=== PATIENT | male | born 1975 | race Caucasian/White ===

== ENCOUNTER 2024-04-05 10:29 | Emergency (ER) | payer OTHER ==
[2024-04-05 10:47] VITALS: PULSE 94; TEMP 98.4; O2SAT 95
[2024-04-05] MEDS ORDERED: DECADRON 10MG INJ. ONE (11:32)
[2024-04-05] MEDS ORDERED: TORAdol 30 mg Injection ONE (11:32)
--- NOTE | 2024-04-05 11:33 | ERPHSYRPT ---
- History of Present Illness Time Seen by Provider: 04/05/24 10:50 Source: patient Exam Limitations: no limitations Patient Subjective Stated Complaint: right lower back pain for approx 1 weeks Triage Nursing Assessment: Pt brought to the ER by his , hypertensive, rates pain as 8-9/10, pulses normal, skin n /w/d, pain in right lower back that radiats to his right buttock, pt had an injured right ham string approx 6 months ago and did do a lot of physical therapy and unsure if it is related or not, no difficulty breathing, denies chest pain, doesn't appear to be in any distress Physician History: Patient is a 49-year-old male history of hypertension and low back pain presents to our ED for acute on chronic low back pain. Pain started approximately 5 days ago. Pain radiates down into his right buttock. Patient reports that he has difficulty getting out of bed in the morning. states that it is limiting his functional capacity. Patient had a torn hamstring diagnosed approximately 6 months ago. Patient went through physical therapy for the hamstring tear. Family is wondering if physical therapy exacerbated his back pain. No interval trauma. No falls no injuries. No extremity numbness tingling or weakness. No change in bowel bladder function. No saddle anesthesia. No recent back procedure. No associate abdominal or chest pain. Patient's last imaging study was over a year ago. requesting a CT scan. They voiced no other complaints or concerns at this time. Portions of this note were created with voice recognition technology. There may be grammatical, spelling, punctuation or sound alike errors Timing/Duration: day(s) (2 days) Method of Injury: unknown Quality: radiating Back Pain Location: lumbar spine Back Pain Radiation: buttocks (Pain radiates to right buttock) Severity of Pain-Max: moderate Severity of Pain-Current: moderate Modifying Factors: Improves With: movement Associated Symptoms: denies symptoms Previous symptoms: same symptoms as today Allergies/Adverse Reactions: No Known Drug Allergies Allergy (Verified 04/05/24 10:47) Hx Influenza Vaccination/Date Given: Yes Hx Pneumococcal Vaccination/Date Given: No Travel Risk - International Travel Have you traveled outside of the country in past 3 weeks: No - Emerging Infectious Disease Are you exhibiting symptoms associated with any current EIDs: No - Review of Systems Constitutional: No Symptoms, No Fever, No Chills Eyes: No Symptoms Ears, Nose, & Throat: No Symptoms Respiratory: No Symptoms, No Cough, No Dyspnea Cardiac: No Symptoms, No Chest Pain, No Edema, No Syncope Abdominal/Gastrointestinal: No Symptoms, No Abdominal Pain, No Nausea, No Vomiting, No Diarrhea Genitourinary Symptoms: No Symptoms, No Dysuria Musculoskeletal: No Symptoms, No Back Pain, No Neck Pain Skin: No Symptoms, No Rash Neurological: No Symptoms, No Dizziness, No Focal Weakness, No Sensory Changes Psychological: No Symptoms Endocrine: No Symptoms Hematologic/Lymphatic: No Symptoms Immunological/Allergic: No Symptoms All Other Systems: Reviewed and Negative - Past Medical History Pertinent Past Medical History: Yes Cardiac History: High Cholesterol, Hypertension - Past Surgical History Past Surgical History: Yes Musculoskeletal: Orthopedic Surgery - Social History Smoking Status: Current every day smoker Exposure to second hand smoke: Yes Drug Use: none - Social Determinants of Health Will the patient participate in the screening: Yes Do you worry about a steady place to live?: No Do you have any problems with any of the following?: No known problems In the past 12 months,have you had to go without utilities?: No Transportation Issues: No Has anyone in your support network made you feel unsafe?: No Have you or anyone in your house had to go w/o enough food: No - Nursing Vital Signs Nursing Vital Signs: Initial Vital Signs Temperature 98.4 F 04/05/24 10:38 Pulse Rate 94 H 04/05/24 10:38 Blood Pressure 150/95 04/05/24 10:38 O2 Sat by Pulse Oximetry 95 04/05/24 10:38 Pain Scale Pain Intensity [Left Distal 8 Back] Pain Intensity 9 - Physical Exam General Appearance: no apparent distress, alert Eye Exam: PERRL/EOMI, eyes nml inspection Neck Exam: normal inspection, full range of motion, No meningismus, No midline tenderness Respiratory Exam: normal breath sounds, lungs clear, No respiratory distress Cardiovascular Exam: regular rate/rhythm, normal heart sounds, normal peripheral pulses Gastrointestinal Exam: soft, No tenderness, No mass Back Exam: other (Positive straight leg raise right leg) Extremity Exam: normal inspection, normal range of motion, No calf tenderness, No pedal edema Peripheral Pulses: dorsalis-pedis (R): 2+, dorsalis-pedis (L): 2+ Neurologic Exam: alert, oriented x 3, cooperative, 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, normal mood/affect, nml station & gait, sensation nml, No motor deficits Skin Exam: normal color, warm, dry, No rash Lymphatic Exam: No adenopathy SpO2 Interpretation: normal SpO2: 95 O2 Delivery: Room Air - Course Nursing assessment & vital signs reviewed: Yes Ordered Tests: Active Orders 24 hr Category Date Time Status LUMBAR SPINE W/O [CT] Stat Exams 04/05/24 11:30 Completed Medication Summary Discontinued Medications Generic Name Dose Route Start Last Admin Trade Name Ismael PRN Reason Stop Dose Admin Dexamethasone Sodium Phosphate 10 mg 04/05/24 11:10 04/05/24 11:36 Dexamethasone Sod Phosphate 10 Mg/Ml IM 04/05/24 11:11 10 mg STAT ONE Administration Dexamethasone Sodium Phosphate Confirm 04/05/24 11:32 Dexamethasone Sod Phosphate 10 Mg/Ml Administered 04/05/24 11:33 Dose 10 mg .ROUTE .STK-MED ONE Ketorolac Tromethamine 60 mg 04/05/24 11:09 04/05/24 11:35 Ketorolac Tromethamine 30 Mg/Ml Inj IM 04/05/24 11:10 60 mg STAT ONE Administration Ketorolac Tromethamine Confirm 04/05/24 11:32 Ketorolac Tromethamine 30 Mg/Ml Inj Administered 04/05/24 11:33 Dose 60 mg .ROUTE .STK-MED ONE - Progress Progress: improved Progress Note: 49-year-old male presents to our ED for evaluation of low back pain radiating into his right buttock area. Physical exam significant for tenderness along the right lumbar paraspinal musculature into the buttock area. Positive straight leg raise. Patient received Decadron and Toradol. CT lumbar spine shows some degenerative changes and disc bulge. No acute findings. Patient reassessed. Pain improved. Patient states he is ready for discharge. Work note provided. Patient agrees to follow-up with his primary care doctor within 48 hours for reevaluation. Portions of this note were created with voice recognition technology. There may be grammatical, spelling, punctuation or sound alike errors Complexity of problem addressed is moderate acute complicated. No critical care time. Complex of data reviewed analyzes moderate. Test ordered test reviewed results analyzed and correlated clinically with history and physical exam. Risk of complication and or risk of morbidity/mortality of patient management is moderate. A prescription for Toradol forwarded to patient's pharmacy. A school note provided as well. Vital stable. Time spent to discharge patient is approximately 15 minutes. Plan of care established for shared decision making. No social determinants of health present to impede follow-up. Portions of this note were created with voice recognition technology. There may be grammatical, spelling, punctuation or sound alike errors 04/05/24 12:45 Counseled pt/family regarding: lab results, diagnosis, need for follow-up, rad results - Departure Departure Disposition: Home Clinical Impression: Sciatica, Lumbar spine disc bulge, Back pain Condition: Stable Critical Care Time: No Referrals: DOCTOR,NO FAMILY [Primary Care Provider] - Follow up/PCP as directed EMMA ESTEVES MD [ACTIVE STAFF] - Follow up/PCP as directed Additional Instructions: Discharge/Care Plan VLAD WADDELL was seen on 04/05/24 in the Emergency Room. The patient was counseled regarding Diagnosis,Lab results, Imaging studies, need for follow up and when to return to the Emergency Room. Prescriptions given: Discharge Note I have spoken with the patient and/or caregivers. I have explained the patient's condition, diagnosis and treatment plan based on the information available to me at this time. I have answered the patient's and/or caregiver's questions and addressed any concerns. The patient and/or caregivers have as good understanding of the patient's diagnosis, condition and treatment plan as can be expected at this point. The vital signs have been stable. The patient's condition is stable and appropriate for discharge from the emergency department. The patient will pursue further outpatient evaluation with the primary care physician or other designated or consulting physician as outlined in the discharge instructions. The patient and/or caregivers are agreeable to this plan of care and follow-up instructions have been explained in detail. The patient and/or caregivers have received these instruction. The patient/and or caregivers are aware that any significant change in condition or worsening of symptoms should prompt an immediate return to this or the closest emergency department or call 911. Forms: Work/School Release Form Prescriptions: Ketorolac Trometh 10 mg Tab [TORAdol 10 MG TABLET] 10 mg PO TID 5 Days #15 tablet
[2024-04-05 11:35] VITALS: BP 135/83
[2024-04-05] MEDS: TORAdol 30 mg Injection IM ONE (11:35)
[2024-04-05] MEDS: DECADRON 10MG INJ. IM ONE (11:36)
--- NOTE | 2024-04-05 12:19 | XRAY ---
CLINICAL HISTORY: pain COMPARISON: MRI Lumbar spine dated 09/24/2023. TECHNIQUE: CT non-contrast scan of lumbar spine done. Axial images were obtained with reformatted coronal and sagittal images and submitted for interpretation. One of the following dose reduction techniques were utilized for this exam: Automated exposure control, adjustment of the mA and/or kV according to patient size, and use of iterative reconstruction. DLP: 1129.44 mGy-cm, CTDI: 37.11 mGy. FINDINGS: Vertebrae: Mild spondylodegenerative changes with fine osteophyte formation. Anterior detached osteophytes are noted at the L4 vertebral body. Normal alignment of the lumbar vertebrae. No fractures, lytic or sclerotic lesions. Normal bone density without evidence of osteopenia or osteoporosis. T11 and T12 schmorl`s nodes. Intervertebral Discs: Normal height and signal intensity of the intervertebral discs. L3-L4, L4-L5, and L5-S1 lumbar disc bulges/herniations. Spinal Canal and Neural Foramina: The spinal canal is of normal caliber with no evidence of spinal stenosis. Neural foramina are patent bilaterally at all levels. No evidence of nerve root compression. Facet Joints: No significant facet joint arthropathy or significant degenerative changes. Sacro-iliac joints: Bilateral mild osteoarthritic changes of the sacroiliac joints. Soft Tissues: Normal appearance of the paraspinal soft tissues. No abnormal masses, fluid collections, or signs of inflammation. IMPRESSION: 1. No evidence of acute fracture or dislocation. (stable). 2. Mild spondylodegenerative changes with osteophyte formation. Anterior detached osteophytes at the L4 vertebral body. (Stable). 3. L3-L4, L4-L5 and L5-S1 lumbar disc bulges/herniations. Electronically Signed by: Jake Mott MD. (04/05/2024 12:15:47 EST)
== END 2024-04-05 12:53 | disposition home or self-care (01) ==
LOC: ED 10:29
DX: M54.31 Sciatica, right side (principal); M51.369 Other intervertebral disc degeneration, lumbar region without mention of lumbar back pain or lower extremity pain; M54.50 Low back pain, unspecified; E78.5 Hyperlipidemia, unspecified; I10 Essential (primary) hypertension; Z79.899 Other long term (current) drug therapy; Z72.0 Tobacco use
CPT/HCPCS: 72131; 96372; 99284; J1100; J1885